=== PATIENT | female | born 1990 | race Caucasian/White ===

== ENCOUNTER 2022-11-29 20:21 | Emergency (ER) | payer OTHER ==
[2022-11-29] MEDS ORDERED: LIDOCAINE 1% W/EPI 1:100,000 10 ML VIAL ONE ×2 (22:00→22:07)
[2022-11-29] MEDS ORDERED: CEPHALEXIN 250 MG CAP ONE (22:28)
[2022-11-29] MEDS ORDERED: MUPIROCIN 2% OINT 22GM TUBE TOP ONE (22:29)
[2022-11-29] MEDS ORDERED: ONDANSETRON 4 MG (ODT) TAB ONE (22:37)
[2022-11-29] MEDS ORDERED: HYDROCODONE/APAP 5/325 MG TAB ONE (22:37)
--- NOTE | 2022-11-29 22:39 | EDPHYS ---
Physician Documentation [facility] Name: Christie Malik Age: 32 yrs Sex: Female : 1990 Arrival Date: 11/29/2022 Time: 20:21 Bed 11 Private MD: ED Physician Pedro Grewal HPI: 11/29 22:32 This 32 yrs old Female presents to ER via Ambulatory with complaints of javier Breast Abcess. 22:32 The patient presents with an abscess of the left breast, The patient presents with javier cellulitis of the . Description: erythematous, fluctuant, pointed, swollen. Onset: The symptoms/episode began/occurred 2 week(s) ago. Possible cause(s): unknown. Associated signs and symptoms: Pertinent positives:. Severity of symptoms: At their worst the symptoms were moderate, in the emergency department the symptoms are unchanged. 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 - Social history:: Smoking status: Patient denies any tobacco usage or history of. ROS: 22:33 Constitutional: Negative for fever, chills, and weight loss, Eyes: Negative for injury, javier pain, redness, and discharge, ENT: Negative for injury, pain, and discharge, Neck: Negative for injury, pain, and swelling, Cardiovascular: Negative for chest pain, palpitations, and edema, Respiratory: Negative for shortness of breath, cough, wheezing, and pleuritic chest pain, Abdomen/GI: Negative for abdominal pain, nausea, vomiting, diarrhea, and constipation, Back: Negative for injury and pain, : Negative for injury, bleeding, discharge, and swelling, MS/Extremity: Negative for injury and deformity, Neuro: Negative for headache, weakness, numbness, tingling, and seizure, Psych: Negative for depression, anxiety, suicide ideation, homicidal ideation, and hallucinations, Allergy/Immunology: Negative for hives, rash, and allergies, Endocrine: Negative for neck swelling, polydipsia, polyuria, polyphagia, and marked weight changes, Hematologic/Lymphatic: Negative for swollen nodes, abnormal bleeding, and unusual bruising. 22:33 Skin: Positive for cellulitis, erythema, swelling. Exam: 22:33 Constitutional: This is a well developed, well nourished patient who is awake, alert, javier and in no acute distress. Head/Face: Normocephalic, atraumatic. Eyes: Pupils equal round and reactive to light, extra-ocular motions intact. Lids and lashes normal. Conjunctiva and sclera are non-icteric and not injected. Cornea within normal limits. Periorbital areas with no swelling, redness, or edema. ENT: Nares patent. No nasal discharge, no septal abnormalities noted. Tympanic membranes are normal and external auditory canals are clear. Oropharynx with no redness, swelling, or masses, exudates, or evidence of obstruction, uvula midline. Mucous membranes moist. Neck: Trachea midline, no thyromegaly or masses palpated, and no cervical lymphadenopathy. Supple, full range of motion without nuchal rigidity, or vertebral point tenderness. No Meningismus. Chest/axilla: Normal chest wall appearance and motion. Nontender with no deformity. No lesions are appreciated. Cardiovascular: Regular rate and rhythm with a normal S1 and S2. No gallops, murmurs, or rubs. Normal PMI, no JVD. No pulse deficits. Respiratory: Lungs have equal breath sounds bilaterally, clear to auscultation and percussion. No rales, rhonchi or wheezes noted. No increased work of breathing, no retractions or nasal flaring. Abdomen/GI: Soft, non-tender, with normal bowel sounds. No distension or tympany. No guarding or rebound. No evidence of tenderness throughout. Back: No spinal tenderness. No costovertebral tenderness. Full range of motion. MS/ Extremity: Pulses equal, no cyanosis. Neurovascular intact. Full, normal range of motion. Neuro: Awake and alert, GCS 15, oriented to person, place, time, and situation. Cranial nerves II-XII grossly intact. Motor strength 5/5 in all extremities. Sensory grossly intact. Cerebellar exam normal. Normal gait. Psych: Awake, alert, with orientation to person, place and time. Behavior, mood, and affect are within normal limits. 22:33 Skin: abscess, that is moderate sized, of the left lateral anterior chest, left nipple and left breast, with fluctuance, with induration, with surrounding cellulitis, that is moderate, cellulitis, that is mild, induration, that is moderate is noted, located on the left lateral anterior chest, left nipple and left breast. Vital Signs: 20:30 BP 125 / 84; Pulse 78; Resp 18; Temp 97.7; Pulse Ox 100% ; Weight 101.15 kg; Height 5 mb9 ft. 9 in. ; 23:00 BP 131 / 85; Pulse 85; Resp 18; Temp 97.5(O); kl 20:30 Body Mass Index 32.93 (101.15 kg, 175.26 cm) mb9 Procedures: 22:44 I \T\ D: Incision and drainage was performed for an abscess of the left axilla. Prepped javier with Betadine, Anesthetized with 12 ml's 1% Lidocaine w/ Epi. Incised with #11 blade. Drained moderate amount purulent fluid. Packed with iodoform gauze, Dressing: non-Adherent dressing, the patient tolerated the procedure well. MDM: 20:25 Patient medically screened. javier 22:36 Differential diagnosis: abscess, cellulitis. Data reviewed: vital signs, nurses notes. [facility] Consideration of Admission/Observation Escalation of care including admission/observation considered. I considered the following discharge prescriptions or medication management in the emergency department Medications were administered in the Emergency Department. See MAR. Test considered but Not performed: Labs: NO LABS. NO USG. Care significantly affected by the following chronic conditions: NONE. Counseling: I had a detailed discussion with the patient and/or guardian regarding: the historical points, exam findings, and any diagnostic results supporting the discharge/admit diagnosis, the need for outpatient follow up, for definitive care, a general surgeon. 11/29 20:33 Order name: Wound Culture [facility] 11/29 20:33 Order name: Dressing - Wound; Complete Time: 22:40 [facility] 11/29 20:33 Order name: Gloves, Sterile; Complete Time: 22:40 [facility] 11/29 20:33 Order name: Setup Suture Tray; Complete Time: 22:40 javier Administered Medications: 22:15 Not Given (Other Intervention Used): Clindamycin PO 300 mg PO once kl 22:29 Drug: Mupirocin Topical Ointment 2 % 1 application Route: Topical; Site: affected area; kl 22:43 Follow up: Response: No adverse reaction kl 22:34 Drug: HYDROcodone-acetaminophen PO 5 mg-325 mg 2 tabs Route: PO; kl 22:42 Follow up: Response: No adverse reaction kl 22:34 Drug: Ondansetron PO 4 mg Route: PO; kl 22:42 Follow up: Response: No adverse reaction 22:40 Drug: Lidocaine-Epinephrine Infiltration -1%: (1:100,000) 10 ml {Note: administered by asif Grewal.} Volume: 20 ml; Route: Infiltration; 22:42 Drug: Cephalexin PO 500 mg Route: PO; kl 22:43 Follow up: Response: No adverse reaction Disposition Summary: 11/29/22 22:38 Discharge Ordered Location: Home javier Problem: new javier Symptoms: have improved javier Condition: Stable javier Diagnosis - Cutaneous abscess of other sites - LEFT LATERAL BREAST javier Followup: javier - With: Quinn Dash MD - When: 2 - 3 days - Reason: Recheck today's complaints, Continuance of care, Re-evaluation by your physician Discharge Instructions: - Discharge Summary Sheet javier - Skin Abscess javier - Cellulitis, Adult javier - Skin Abscess, [id number] javier - Cellulitis, Adult, [id number] javier Forms: - Medication Reconciliation Form [facility] - Thank You Letter javier - Antibiotic Education javier - Prescription Opioid Use [facility] Prescriptions: - Centany 2 % Topical ointment - apply 1 application by TOPICAL route 4 times per day; 30 gram tube; Refills: 0, [facility] Product Selection Permitted - acetaminophen-codeine 300-30 mg Oral tablet - take 2 tablet by ORAL route 4 times per day; 24 tablet; Refills: 0, Product [facility] Selection Permitted - Cephalexin 500 mg Oral Capsule - take 1 capsule by ORAL route every 6 hours for 7 days; 28 capsule; Refills: 0, [facility] Product Selection Permitted - Clindamycin HCl 300 mg Oral Capsule - take 1 capsule by ORAL route every 6 hours for 7 days; 28 capsule; Refills: 0, [facility] Product Selection Permitted Signatures: Dispatcher [employer] Emily Walton, RN Pedro Barfield MD MD cha Breneman, Mary Beth, RN RN mb9
--- NOTE | 2022-11-29 22:39 | ER ---
Nurse's Notes [facility] Name: Christie Malik Age: 32 yrs Sex: Female : 1990 Arrival Date: 11/29/2022 Time: 20:21 Bed 11 Private MD: Diagnosis: Cutaneous abscess of other sites-LEFT LATERAL BREAST Presentation: 11/29 20:30 Chief complaint: Patient states: "I've got an abscess on my left breast for two weeks mb9 now. It's red and inflamed now. They started me on Bactrim at first, Difloxacin, and Clindamycin and it isn't working. I just had a baby 5 weeks ago and stopped ". Coronavirus screen: Vaccine status: Patient reports being unvaccinated. Ebola Screen: No symptoms or risks identified at this time. Initial Sepsis Screen: Does the patient meet any 2 criteria? No. Patient's initial sepsis screen is negative. Does the patient have a suspected source of infection? No. Patient's initial sepsis screen is negative. Risk Assessment: Do you want to hurt yourself or someone else? Patient reports no desire to harm self or others. Onset of symptoms was November 04, 2022. 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 - Social history:: Smoking status: Patient denies any tobacco usage or history of. Screenin:41 [facility] ED Fall Risk Assessment (Adult) History of falling in the last 3 months, kl including since admission No falls in past 3 months (0 pts). Abuse screen: Denies threats or abuse. Nutritional screening: No deficits noted. Tuberculosis screening: No symptoms or risk factors identified. Assessment: 22:41 Pain: Complains of pain in left breast Pain currently is 8 out of 10 on a pain scale. kl Neuro: No deficits noted. Cardiovascular: No deficits noted. Respiratory: No deficits noted. GI: No deficits noted. No signs and/or symptoms were reported involving the gastrointestinal system. : No deficits noted. No signs and/or symptoms were reported regarding the genitourinary system. EENT: No deficits noted. No signs and/or symptoms were reported regarding the EENT system. Derm: Wound noted left breast. Vital Signs: 20:30 BP 125 / 84; Pulse 78; Resp 18; Temp 97.7; Pulse Ox 100% ; Weight 101.15 kg; Height 5 mb9 ft. 9 in. ; 23:00 BP 131 / 85; Pulse 85; Resp 18; Temp 97.5(O); kl 20:30 Body Mass Index 32.93 (101.15 kg, 175.26 cm) 9 ED Course: 20:24 Patient arrived in ED. ja2 20:25 Pedro Grewal MD is Attending Physician. javier 20:30 Arm band placed on. mb9 20:32 Triage completed. 9 22:37 Quinn Dash MD is Referral Physician[facility] 22:41 No provider procedures requiring assistance completed. Assist provider with I \\T\\ D: of kl an abscess on Set up I\\T\\D tray. Performed by Pedro Grewal MD Culture sent to lab. Wound packed. iodoform gauze, Dressing with 4X4s, Patient tolerated well. 22:42 Patient did not have IV access during this emergency room visit. Administered Medications: 22:15 Not Given (Other Intervention Used): Clindamycin PO 300 mg PO once 22:29 Drug: Mupirocin Topical Ointment 2 % 1 application Route: Topical; Site: affected area; kl 22:43 Follow up: Response: No adverse reaction kl 22:34 Drug: HYDROcodone-acetaminophen PO 5 mg-325 mg 2 tabs Route: PO; kl 22:42 Follow up: Response: No adverse reaction kl 22:34 Drug: Ondansetron PO 4 mg Route: PO; kl 22:42 Follow up: Response: No adverse reaction 22:40 Drug: Lidocaine-Epinephrine Infiltration -1%: (1:100,000) 10 ml {Note: administered by asif Grewal.} Volume: 20 ml; Route: Infiltration; 22:42 Drug: Cephalexin PO 500 mg Route: PO; 22:43 Follow up: Response: No adverse reaction Outcome: 22:38 Discharge ordered by . javier 23:00 Discharged to home ambulatory, with family. kl 23:00 Condition: improved 23:00 Discharge instructions given to patient, Instructed on discharge instructions, follow up and referral plans. medication usage, wound care, Demonstrated understanding of instructions, follow-up care, medications, wound care. 23:01 Patient left the ED. Addendum: 12/03/2022 10:57 Addendum: Culture Results: Positive wound culture. Bacteria is resistant to, has j l7 intermediate sensitivity, or is not tested against prescribed antibiotics. Report given to TONO for further evaluation and then to adoption manager for follow up with patient. Phone call Attempt #1 left voice mail. Signatures: Emily Caban, RN RN Pedro Lott MD MD cha Leal, Jahala, RN RN Zoe Stauffer Mary Beth, RN RN mb9 Corrections: (The following items were deleted from the chart) 11/29 20:34 20:30 Chief complaint: Patient states: "I've got an abscess on my left breast for two mb9 weeks now. It's red and inflamed now. They started me on Bactrim at first, Difloxacin, and Clindamycin and it isn't working" mb9
[2022-11-30 00:50] VITALS: O2SAT 100
[2022-11-30 00:51] VITALS: BP 131/85; TEMP 97.5
== END 2022-11-29 23:01 | disposition home or self-care (01) ==
LOC: ER 20:21
PROC: 0H95XZZ Drainage of Chest Skin, External Approach (ICD-10-PCS; principal; 2022-11-29)
DX: N61.1 Abscess of the breast and nipple (principal)
CPT/HCPCS: 10060; 87070; 87205; Q0162; 87077; 87186